=== PATIENT | female | born 1945 | race Caucasian/White ===

== ENCOUNTER 2018-02-08 10:58 | Inpatient (IN) | payer OTHER ==
[2018-02-08] MEDS ORDERED: NA CHLORIDE 0.9% 1,000 ML ONE ×2 (11:00→11:13)
[2018-02-08] MEDS ORDERED: DIGOXIN 0.25 MG/ML AMP ONE (11:49)
--- NOTE | 2018-02-08 11:52 | RAD REPORT ---
EXAM DESCRIPTION: [place] Single View02/08/2018 11:40 am CLINICAL HISTORY: Shortness of breath COMPARISON: 2016 FINDINGS: Mild patchy bilateral lung opacities are seen. The left mediastinum is prominent. The heart is normal size IMPRESSION: Prominence of the mediastinum may indicate lymphadenopathy. CT chest with IV contrast is recommended. Mild bilateral patchy lung opacities. This also can be evaluated on the CT scan
--- NOTE | 2018-02-08 12:19 | ER ---
Nurse's Notes [facility] Name: Jadon Triplett Age: 72 yrs Sex: Female : 1945 Arrival Date: 02/08/2018 Time: 10:59 Bed 3 Private MD: Diagnosis: Dyspnea;Hypoxemia;Cardiomegaly;Cystitis;Hemoptysis-6 cm left hilar mass, malignant Presentation: 02/08 10:55 Presenting complaint: EMS states: Shortness of breath and lethargy x "a few days". ss Transition of care: patient was received from another setting of care ([facility]-term care [facility]. Onset of symptoms is unknown. Risk Assessment: Do you want to hurt yourself or someone else? Patient reports no desire to harm self or others. Initial Sepsis Screen: Does the patient meet any 2 criteria? RR > 20 per min. Altered Mental Status. HR > 90 bpm. Does the patient have a suspected source of infection? Yes: Productive cough/pneumonia. Note half-way reports that patient was 96% on 2L NC, however EMS sheet metal smith states that on arrival to [place], patient's O2 on 10 L was 92%. Care prior to arrival: IV initiated. 20 GA, in the left antecubital area, Glucose check: 110 Oxygen administered. via a non-rebreather mask. 10:55 Method Of Arrival: EMS: [facility] 10:55 Acuity: PATRICIO 2 ss Triage Assessment: 11:00 General: Appears uncomfortable, slender, malnourished, Behavior is calm, cooperative, sv appropriate for age. Pain: Denies pain. EENT: No signs and/or symptoms were reported regarding the EENT system. Neuro: Level of Consciousness is awake, alert, obeys commands, Oriented to person, place, time, situation, Weakness in bilateral leg(s). Cardiovascular: Heart tones S1 S2 present Patient's skin is warm and dry. Pulses are 3+ in right radial artery and left radial artery Rhythm is atrial fibrillation with rapid ventricular response. Respiratory: Reports shortness of breath at rest Respiratory effort is labored, Respiratory pattern is symmetrical, tachypnea Onset: The symptoms/episode began/occurred just prior to arrival, the patient has mild shortness of breath. Derm: Skin is pale. Musculoskeletal: Range of motion: limited in right elbow. Historical: - Allergies: 11:53 No Known Allergies; sv - PMHx: 13:51 Arthritis; Asthma; Chronic pain; COPD; Degenerative disc disease; Depression; tw2 Hypertension; Myocardial infarction; Rheumatoid Arthritis; Polio; - Immunization history:: Adult Immunizations up to date. - Family history:: not pertinent. - Social history:: Smoking status: Patient/guardian denies using tobacco. - Ebola Screening: : No symptoms or risks identified at this time. Screenin:10 Abuse screen: Denies threats or abuse. Denies injuries from another. Nutritional sv screening: On no prescribed diet Difficulty chewing/swallowing? No Had unintentional weight loss of 10 pounds or more. Intervention for positive screen: ED Physician notified. Tuberculosis screening: No symptoms or risk factors identified. Fall Risk No fall in past 12 months (0 pts). Secondary diagnosis (15 points) impaired mobility, IV access (20 points). Ambulatory Aid- None/Bed Rest/Nurse Assist (0 pts). Gait- Weak (10 pts.). Mental Status- Oriented to own ability (0 pts). Total Martin Fall Scale indicates High Risk Score (45 or more points). Fall prevention measures have been instituted. Side Rails Up X 2 Placed Close to Nursing Station Frequent Obs/Assessments Occuring As available patient and family educated on Fall Prevention Program and Strategies. Assessment: 11:10 Reassessment: See triage assessment. sv 11:50 Reassessment: No changes from previously documented assessment. Patient and/or family sv updated on plan of care and expected duration. Pain level reassessed. Patient is alert, oriented x 3, equal unlabored respirations, skin warm/dry/pink. 13:05 Reassessment: pt taken to CT at this time with tech. Christine tw2 13:57 Reassessment: Patient and/or family updated on plan of care and expected duration. Pain sv level reassessed. Patient is alert, oriented x 3, equal unlabored respirations, skin warm/dry/pink. Patient states symptoms have improved. Respiratory: Airway is patent Respiratory effort is even, unlabored, Respiratory pattern is symmetrical, tachypnea. Vital Signs: 10:55 BP 118 / 44; Pulse 146; Resp 28; Pulse Ox 94% on 10% Non-rebreather mask; sv 11:54 BP 146 / 84; Pulse 116; Resp 25; Pulse Ox 100% on 10% Non-rebreather mask; tw2 12:34 Weight 36.29 kg (R); tw2 12:36 BP 124 / 59; Pulse 119; Resp 28; Pulse Ox 99% ; em1 13:30 BP 109 / 59; Pulse 118; Resp 23; Pulse Ox 98% on 2 lpm NC; sv 14:20 BP 100 / 57; Pulse 111; Resp 22; Pulse Ox 95% on 2 lpm NC; sv 12:34 per [facility] via family at bedside at this time. tw2 ED Course: 10:59 Patient arrived in ED. ss 10:59 Rakesh Gerber MD is Attending Physician. cassi 11:02 Triage completed. ss 11:02 Arm band placed on right wrist. ss 11:10 Patient has correct armband on for positive identification. Placed in gown. Bed in low sv position. Side rails up X2. medical concierge on. Pulse ox on. NIBP on. Door closed. Warm blanket given. Pillow given. Head of bed elevated. 11:18 Radha Lemon, EILEEN is Primary Nurse. sv 11:20 Villafana cath inserted, using sterile technique, 16 Fr., by hi, balloon inflated, to sv gravity drainage, urine specimen collected. returned cloudy urine. Patient tolerated poorly. 11:37 X-ray completed. Portable x-ray completed in exam room. Patient tolerated procedure mh1 well. 11:37 XRAY Chest (1 view) In Process Unspecified. EDMS 12:18 Oma Page MD is Hospitalizing Provider. cassi 13:15 CBC Smear Scan Sent. sv 13:16 Ckmb Sent. sv 13:16 CPK Sent. sv 13:16 LFT's Sent. sv 13:16 Basic Metabolic Panel Sent. sv 13:16 BNP Sent. sv 13:18 CT completed. Patient tolerated procedure well. Patient moved back from CT. mw3 13:52 Awaiting: Attempted to give report at this time was told Suzy needed 10 minutes. tw2 13:58 No provider procedures requiring assistance completed. sv 14:08 Patient admitted, IV remains in place. intact. sv Administered Medications: 11:33 Drug: NS 0.9% 500 ml Route: IV; Rate: bolus; Site: left antecubital; sv 11:50 Follow up: Response: No adverse reaction; IV Status: Completed infusion; IV Intake: sv 500ml 11:51 Drug: Digoxin 0.5 mg Route: IVP; Site: left antecubital; sv 12:00 Follow up: Response: No adverse reaction sv 12:45 Drug: Lopressor 2.5 mg Route: IVP; Site: left jugular; tw2 14:24 Follow up: Response: No adverse reaction sv 12:47 Drug: Xopenex 1.25 mg Route: Inhalation; tw2 12:48 Drug: levofloxacin 500 mg Volume: 100 ml; Route: IVPB; Infused Over: 60 mins; Site: tw2 left jugular; 13:45 Follow up: Response: No adverse reaction; IV Status: Completed infusion; IV Intake: sv 100ml 12:48 Drug: Xopenex 1.25 mg Route: Inhalation; tw2 12:48 Drug: AtroVENT Aerosol 0.5 mg Route: Inhalation; tw2 12:48 Drug: Lopressor 25 mg Route: PO; tw2 14:25 Follow up: Response: No adverse reaction sv 12:48 Drug: SOLU-Medrol 2 mg/kg {Note: 72mg Solu-Medrol given.} Route: IVP; Site: left tw2 jugular; 14:23 Follow up: Response: No adverse reaction sv 12:49 Drug: NS 0.9% 1000 ml Route: IV; Rate: 125 ml/hr; Site: left antecubital; tw2 14:25 Follow up: Response: No adverse reaction; IV Status: Infusion continued upon admission sv 12:58 Drug: Rocephin - (cefTRIAXone) 1 grams Route: IVPB; Infused Over: 5 mins; Site: left tw2 jugular; 13:04 Follow up: Response: No adverse reaction; IV Status: Completed infusion tw2 14:24 CANCELLED (not needed): Lopressor 2.5 mg IVP once; Hold for SBP <100 or HR <60. sv Intake: 11:50 IV: 500ml; Total: 500ml. sv 13:45 IV: 100ml; Total: 600ml. sv Outcome: 12:19 Decision to Hospitalize by Provider. cassi 14:08 Admitted to Tele accompanied by tech, family with patient, via stretcher, room 416, sv with oxygen, with chart, Report called to Suzy ARELLANO 14:08 Condition: stable 14:08 Condition: improved 14:08 Instructed on the need for admit. 14:28 Patient left the ED. sv Signatures: Dispatcher [employer] Radha Griffith RN Rakesh Barnes MD MD cha Harvey, Martha 1 Virgilio Henley1 Bria Bartholomew RN RN ss Andria Mariano RN RN tw2 Martha Florence 3
--- NOTE | 2018-02-08 12:20 | EDPHYS ---
Physician Documentation [facility] Name: Jadon Triplett Age: 72 yrs Sex: Female : 1945 Arrival Date: 02/08/2018 Time: 10:59 Bed 3 Private MD: ED Physician Rakesh Gerber HPI: 02/08 11:18 This 72 yrs old Female presents to ER via EMS with complaints of Cough, Chest cassi Congestion, Shortness Of Breath. 11:18 The patient or guardian reports cough, difficulty breathing. Onset: The cassi symptoms/episode began/occurred 2 day(s) ago. Severity of symptoms: At their worst the symptoms were moderate, in the emergency department the symptoms are unchanged. Modifying factors: The symptoms are alleviated by nothing, the symptoms are aggravated by nothing. Associated signs and symptoms:. The patient has not experienced similar symptoms in the past. Historical: - Allergies: 11:53 No Known Allergies; sv - PMHx: 13:51 Arthritis; Asthma; Chronic pain; COPD; Degenerative disc disease; Depression; tw2 Hypertension; Myocardial infarction; Rheumatoid Arthritis; Polio; - Immunization history:: Adult Immunizations up to date. - Family history:: not pertinent. - Social history:: Smoking status: Patient/guardian denies using tobacco. - Ebola Screening: : No symptoms or risks identified at this time. ROS: 11:19 Constitutional: Negative for fever, chills, and weight loss, Eyes: Negative for injury, cassi pain, redness, and discharge, ENT: Negative for injury, pain, and discharge, Neck: Negative for injury, pain, and swelling, Abdomen/GI: Negative for abdominal pain, nausea, vomiting, diarrhea, and constipation, Back: Negative for injury and pain, : Negative for injury, bleeding, discharge, and swelling, MS/Extremity: Negative for injury and deformity, Skin: Negative for injury, rash, and discoloration, Neuro: Negative for headache, weakness, numbness, tingling, and seizure. 11:19 Cardiovascular: Positive for chest pain, palpitations. 11:19 Respiratory: Positive for cough, shortness of breath, wheezing, expiratory. Exam: 11:19 Constitutional: This is a well developed, well nourished patient who is awake, alert, cassi and in no acute distress. Head/Face: Normocephalic, atraumatic. Eyes: Pupils equal round and reactive to light, extra-ocular motions intact. Lids and lashes normal. Conjunctiva and sclera are non-icteric and not injected. Cornea within normal limits. Periorbital areas with no swelling, redness, or edema. ENT: Nares patent. No nasal discharge, no septal abnormalities noted. Tympanic membranes are normal and external auditory canals are clear. Oropharynx with no redness, swelling, or masses, exudates, or evidence of obstruction, uvula midline. Mucous membranes moist. Neck: Trachea midline, no thyromegaly or masses palpated, and no cervical lymphadenopathy. Supple, full range of motion without nuchal rigidity, or vertebral point tenderness. No Meningismus. Chest/axilla: Normal chest wall appearance and motion. Nontender with no deformity. No lesions are appreciated. Abdomen/GI: Soft, non-tender, with normal bowel sounds. No distension or tympany. No guarding or rebound. No evidence of tenderness throughout. Back: No spinal tenderness. No costovertebral tenderness. Full range of motion. Female : Normal external genitalia. Skin: Warm, dry with normal turgor. Normal color with no rashes, no lesions, and no evidence of cellulitis. MS/ Extremity: Pulses equal, no cyanosis. Neurovascular intact. Full, normal range of motion. Neuro: Awake and alert, GCS 15, oriented to person, place, time, and situation. Cranial nerves II-XII grossly intact. Motor strength 5/5 in all extremities. Sensory grossly intact. Cerebellar exam normal. Normal gait. Psych: Awake, alert, with orientation to person, place and time. Behavior, mood, and affect are within normal limits. 11:19 Cardiovascular: Rate: tachycardic, Rhythm: irregularly irregular, Pulses: Pulses are 4+ in bilateral radial, brachial, femoral, popliteal, posterior tibial and and dorsalis pedis arteries.. Heart sounds: normal, JVD: is not appreciated. Vital Signs: 10:55 BP 118 / 44; Pulse 146; Resp 28; Pulse Ox 94% on 10% Non-rebreather mask; sv 11:54 BP 146 / 84; Pulse 116; Resp 25; Pulse Ox 100% on 10% Non-rebreather mask; tw2 12:34 Weight 36.29 kg (R); tw2 12:36 BP 124 / 59; Pulse 119; Resp 28; Pulse Ox 99% ; em1 13:30 BP 109 / 59; Pulse 118; Resp 23; Pulse Ox 98% on 2 lpm NC; sv 14:20 BP 100 / 57; Pulse 111; Resp 22; Pulse Ox 95% on 2 lpm NC; sv 12:34 per [facility] via family at bedside at this time. tw2 Procedures: 12:29 Peripheral line: by aseptic technique a peripheral line was placed in the left external [facility] jugular vein. MDM: 10:59 Patient medically screened. [facility] 11:21 Data reviewed: vital signs, nurses notes, lab test result(s), EKG, radiologic studies, [facility] plain films. 02/08 11:04 Order name: Basic Metabolic Panel [facility] 02/08 11:04 Order name: BNP [facility] 02/08 11:04 Order name: CBC with Diff [facility] 02/08 11:04 Order name: Ckmb [facility] 02/08 11:04 Order name: CPK [facility] 02/08 11:04 Order name: LFT's [facility] 02/08 11:04 Order name: Magnesium; Complete Time: 12:59 [facility] 02/08 11:04 Order name: PT-INR; Complete Time: 12:59 [facility] 02/08 11:04 Order name: Ptt, Activated; Complete Time: 12:59 [facility] 02/08 11:04 Order name: Troponin (emerg Dept Use Only); Complete Time: 12:59 [facility] 02/08 11:04 Order name: Lipase; Complete Time: 12:59 [facility] 02/08 11:04 Order name: Blood Culture Adult (2) [facility] 02/08 11:04 Order name: Procalcitonin [facility] 02/08 11:04 Order name: Urine Culture [facility] 02/08 11:04 Order name: XRAY Chest (1 view); Complete Time: 12:15 [facility] 02/08 11:04 Order name: Type And Screen; Complete Time: 13:17 [facility] 02/08 11:05 Order name: Basic Metabolic Panel; Complete Time: 12:59 EDMS 02/08 11:05 Order name: BNP B-Type Natriuretic Peptide; Complete Time: 12:59 EDMS 02/08 11:05 Order name: CKMB Creatine Kinase MB; Complete Time: 12:59 EDMS 02/08 11:05 Order name: Creatine Phosphokinase; Complete Time: 12:59 EDMS 02/08 11:05 Order name: Liver (Hepatic) Function; Complete Time: 12:59 [facility] 02/08 11:17 Order name: TSH [facility] 02/08 12:17 Order name: CT Chest For PE Angio [facility] 02/08 12:30 Order name: CBC Smear Scan [facility] 02/08 12:35 Order name: Urine Dipstick--Ancillary (enter results); Complete Time: 12:48 02/08 13:48 Order name: CT [facility] 02/08 11:04 Order name: EKG; Complete Time: 11:05 [facility] 02/08 11:04 Order name: Cardiac monitoring; Complete Time: 11:09 [facility] 02/08 11:04 Order name: EKG - Nurse/Tech; Complete Time: 11:10 [facility] 02/08 11:04 Order name: IV Saline Lock; Complete Time: 11:10 [facility] 02/08 11:04 Order name: Labs collected and sent; Complete Time: 11:10 [facility] 02/08 11:04 Order name: O2 Per Protocol; Complete Time: 11:10 [facility] 02/08 11:04 Order name: O2 Sat Monitoring; Complete Time: 11:10 [facility] 02/08 11:04 Order name: Urine Dipstick-Ancillary (obtain specimen); Complete Time: 13:16 [facility] 02/08 11:04 Order name: IV Saline Lock - Large Bore; Complete Time: 11:33 [facility] 02/08 11:04 Order name: Villafana; Complete Time: 11:33 [facility] 02/08 12:25 Order name: CONS Physician Consult [facility] Administered Medications: 11:33 Drug: NS 0.9% 500 ml Route: IV; Rate: bolus; Site: left antecubital; sv 11:50 Follow up: Response: No adverse reaction; IV Status: Completed infusion; IV Intake: sv 500ml 11:51 Drug: Digoxin 0.5 mg Route: IVP; Site: left antecubital; sv 12:00 Follow up: Response: No adverse reaction sv 12:45 Drug: Lopressor 2.5 mg Route: IVP; Site: left jugular; tw2 14:24 Follow up: Response: No adverse reaction sv 12:47 Drug: Xopenex 1.25 mg Route: Inhalation; tw2 12:48 Drug: levofloxacin 500 mg Volume: 100 ml; Route: IVPB; Infused Over: 60 mins; Site: tw2 left jugular; 13:45 Follow up: Response: No adverse reaction; IV Status: Completed infusion; IV Intake: sv 100ml 12:48 Drug: Xopenex 1.25 mg Route: Inhalation; tw2 12:48 Drug: AtroVENT Aerosol 0.5 mg Route: Inhalation; tw2 12:48 Drug: Lopressor 25 mg Route: PO; tw2 14:25 Follow up: Response: No adverse reaction sv 12:48 Drug: SOLU-Medrol 2 mg/kg {Note: 72mg Solu-Medrol given.} Route: IVP; Site: left tw2 jugular; 14:23 Follow up: Response: No adverse reaction sv 12:49 Drug: NS 0.9% 1000 ml Route: IV; Rate: 125 ml/hr; Site: left antecubital; tw2 14:25 Follow up: Response: No adverse reaction; IV Status: Infusion continued upon admission sv 12:58 Drug: Rocephin - (cefTRIAXone) 1 grams Route: IVPB; Infused Over: 5 mins; Site: left tw2 jugular; 13:04 Follow up: Response: No adverse reaction; IV Status: Completed infusion tw2 14:24 CANCELLED (not needed): Lopressor 2.5 mg IVP once; Hold for SBP <100 or HR <60. sv Disposition: 02/08/18 12:19 Hospitalization ordered by Oma Page for Inpatient Admission. Preliminary diagnosis are Dyspnea, Hypoxemia, Cardiomegaly, Cystitis, Hemoptysis - 6 cm left hilar mass, malignant. - Bed requested for Telemetry/MedSurg (Inpatient). - Status is Inpatient Admission. sv - Condition is Fair. - Problem is new. - Symptoms have improved. UTI on Admission? Yes Signatures: Dispatcher [employer] EDMI Radha Lemon RN RN sv Woody, Diana, RN RN dw Anderson, Corey, MD MD cha Wise, Tara, RN RN tw2 Corrections: (The following items were deleted from the chart) 12:19 12:19 Hospitalization Ordered by Oma Page MD for Inpatient Admission. Preliminary [facility] diagnosis is Dyspnea. Bed requested for Telemetry/MedSurg (Inpatient). Status is Inpatient Admission. Condition is Fair. Problem is new. Symptoms have improved. UTI on Admission? Yes. cassi 12:49 12:19 02/08/2018 12:19 Hospitalization Ordered by Oma Page MD for Inpatient cassi Admission. Preliminary diagnosis is Dyspnea; Hypoxemia; Cardiomegaly. Bed requested for Telemetry/MedSurg (Inpatient). Status is Inpatient Admission. Condition is Fair. Problem is new. Symptoms have improved. UTI on Admission? Yes. cassi 13:33 12:49 02/08/2018 12:19 Hospitalization Ordered by Oma Page MD for Inpatient dw Admission. Preliminary diagnosis is Dyspnea; Hypoxemia; Cardiomegaly; Cystitis. Bed requested for Telemetry/MedSurg (Inpatient). Status is Inpatient Admission. Condition is Fair. Problem is new. Symptoms have improved. UTI on Admission? Yes. cassi 13:45 13:33 02/08/2018 12:19 Hospitalization Ordered by Oma Page MD for Inpatient cassi Admission. Preliminary diagnosis is Dyspnea; Hypoxemia; Cardiomegaly; Cystitis. Bed requested for Telemetry/MedSurg (Inpatient). Status is Inpatient Admission. Condition is Fair. Problem is new. Symptoms have improved. UTI on Admission? Yes. dw 14:24 12:26 Lopressor 2.5 mg IVP once; Hold for SBP <100 or HR <60. ordered. cassi sv 14:24 14:24 Lopressor 2.5 mg IVP once; Hold for SBP <100 or HR <60. ordered. sv sv 14:28 13:45 02/08/2018 12:19 Hospitalization Ordered by Oma Page MD for Inpatient sv Admission. Preliminary diagnosis is Dyspnea; Hypoxemia; Cardiomegaly; Cystitis; Hemoptysis - 6 cm left hilar mass, malignant. Bed requested for Telemetry/MedSurg (Inpatient). Status is Inpatient Admission. Condition is Fair. Problem is new. Symptoms have improved. UTI on Admission? Yes. cassi
[2018-02-08 12:27] LABS: Absolute Lymphocytes (CBC) 0.4 K/uL (0.7-4.9); Absolute Monocytes 0.5 K/uL (0.1-1.3); Absolute Neutrophil 12.5 K/uL (1.8-8.0); Basophils % 0.5 % (0-1.3); Eosinophils % 0.4 % (0-4.4); Hematocrit 37.6 % (36.0-45.0); Lymphocytes % 2.8 % (15.3-44.8); MCH 28.5 pg (27.0-35.0); MCV 89.8 fL (80-100); MPV 7.6 fL (7.6-11.3); Monocytes % 3.8 % (3.3-12.3); RBC Red Blood Cell Count 4.19 M/uL (3.86-4.86)
[2018-02-08 12:37] LABS: Urine Blood 1+ (NEG); Urine Glucose NEGATIVE (NEG); Urine Protein NEGATIVE (NEG); Urine Specific Gravity 1.015 (1.005-1.030); Urine pH 7.5 (5.0-7.0)
[2018-02-08] MEDS ORDERED: LEVALBUTEROL 1.25 MG/3 ML NEB ONE (12:39)
[2018-02-08] MEDS ORDERED: IPRATROPIUM BROM 0.5MG/2.5ML ONE (12:39)
[2018-02-08] MEDS ORDERED: Levofloxacin500mg IV 500 MG/100 ML BAG IV ONE (12:40)
[2018-02-08] MEDS ORDERED: METHYLPREDNISOLONE 125 MG INJ ONE (12:40)
[2018-02-08] MEDS ORDERED: METOPROLOL TAR 25 MG TAB ONE (12:40)
[2018-02-08] MEDS ORDERED: METOPROLOL TARTRATE 5 MG/5 ML INJ IV ONE (12:40)
[2018-02-08 12:43] LABS: Bicarbonate 29 mEq/L (21-31); Glucose Level 163 mg/dL (65-120); Lipase 25 U/L (22-51); Potassium 3.7 mEq/L (3.6-5.0); Sodium Level 143 mEq/L (135-145)
[2018-02-08 12:46] LABS: Protime INR 1.03
[2018-02-08 12:49] LABS: ALT/SGPT 14 IU/L (10-60); AST/SGOT 20 IU/L (10-42); Albumin 2.8 g/dL (3.2-5.5); Alkaline Phosphatase 88 IU/L (42-121); BUN Blood Urea Nitrogen 20 mg/dL (6-20); Bilirubin Direct 0.1 mg/dL (0-0.2); Bilirubin Total 0.5 mg/dL (0.3-1.2); Creatine Phosphokinase 61 IU/L (22-269); Magnesium 2.1 mg/dL (1.8-2.5); Protein, Total 6.9 g/dL (6.0-8.3)
[2018-02-08 12:51] LABS: CKMB Creatine Kinase MB 2.7 ng/ml (0.3-4.0)
[2018-02-08] MEDS ORDERED: CEFTRIAXONE/SWI 1gm 1 GM/10 ML SYR ONE (13:01)
[2018-02-08 13:30] LABS: Blood Morphology Comment NOT SEEN (NOT SEEN); Platelet Estimate ADEQ; Urine White Blood Cell Casts OK
--- NOTE | 2018-02-08 13:48 | RAD REPORT ---
EXAM DESCRIPTION: CT - Chest For Pe Angio - 02/08/2018 1:20 pm CLINICAL HISTORY: Cough, weakness, shortness of breath COMPARISON: Chest exam February 08, 2018, CT study October 2012 TECHNIQUE: Dynamically enhanced 3 mm thick images of the chest were obtained during administration o f approximately 150mL Isovue 370 IV contrast. Coronal and oblique reconstruction images were generate d and reviewed. Exam utilizes a protocol to evaluate the pulmonary arterial tree. All CT scans are performed using dose optimization technique as appropriate and may include automated exposure control or mA/KV adjustment according to patient size. FINDINGS: No pulmonary emboli are identified. No aneurysm, dissection or acute aortic finding. Prominent atherosclerotic calcifications are present . No pericardial thickening or effusion. A large 6 x 5 x 5 centimeter malignant mass encircles the left pulmonary artery causing significant l uminal narrowing. Mass encircles the left mainstem bronchus without luminal narrowing. Aortopulmonic window is filled by this mass which extends superiorly along the left lateral margin of the aorta. Bi lateral hilar lymph nodes are present. Soft tissue attenuation is present in the subcarinal region as well. Patient has significant baseline fibro emphysematous lung changes. In the posterior inferior right up per lobe abutting the major and minor fissures there is focal parenchymal opacification. Patient has had a previous pneumonia in this region and this could be postinflammatory scarring. A new area of in filtrate is possible. 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 Po sterior gutter atelectasis is present. A 10 millimeter nodule in the right lower lobe near the base i s probably metastatic. No chest wall masses or abnormal axillary lymphadenopathy. Findings telephoned to the referring physician 1:43 p.m. IMPRESSION: No pulmonary emboli identified. Patient has significant underlying baseline emphysema. Large 6 centimeter malignant mass filling the left side of the mediastinum and left hilum. Mass encir cles and very significantly narrows the left pulmonary artery. Left mainstem bronchus is encircled bu t not narrowed. Bilateral hilar lymphadenopathy and suspected metastatic nodule in the right lower lobe. Patient has bilateral atelectasis in each gutter. This could potentially mask minimal infiltrate. Posterior inferior right upper lobe opacification is favored to be remnant scarring from a prior pneu monia.
--- NOTE | 2018-02-08 14:04 | P.HP ---
Certification for Inpatient Patient admitted to: Inpatient With expected LOS: >2 Midnights Patient will require the following post-hospital care: Hospice Practitioner: I am a practitioner with admitting privileges, knowledge of patient current condition, hospital course, and medical plan of care. Services: Services provided to patient in accordance with Admission requirements found in Title 42 Section 412.3 of the Code of Federal Regulations <Zackary Siddiqi - Last Filed: 02/08/18 13:55> Patient History Date of Service: 02/08/18 Reason for admission: COPD exacerbation, Hemoptysis, UTI, Atrial Fib History of Present Illness: This is a 72-year-old female that presented to the emergency room via EMS for acute respiratory failure. Family stated that patient had not been feeling well for the past couple weeks but has had an abrupt decline over the last day or so. Patient was brought in by EMS and 10 liters/minute non-rebreather with a pulse ox of 92%. Patient currently hemodynamically stable and not in acute respiratory distress post breathing treatments and steroid therapy. The patient has an extensive heart history and pulmonary history including heart stents, congestive heart failure, previous NC, CVA, COPD, coronary artery disease, rheumatoid, arthritis, and GERD. Patient also has a history of polio. The patient was found to be in new onset atrial fibrillation with rapid ventricular rate. Patient was given digoxin and Lopressor via IV. Patient was found to have urinary tract infection which was initially treated with Rocephin. Plain radiographs revealed mediastinal lymphadenopathy. Suggested that she have a CT which was carried out in the ED. CT reveals mediastinal lymphadenopathy with a left mediastinal mass consistent with malignancy. Further assessment will be needed in in hospital setting. Home medications list reviewed: Yes - Past Medical/Surgical History Diabetic: No -: Rheumatoid arthritis -: COPD -: Coronary artery disease with previous stent in 2004 -: Post-polio syndrome -: Carpal tunnel syndrome -: Anxiety -: Hyperlipidemia -: Osteoporosis -: Osteoarthritis -: History of falls -: Asymptomatic cholelithiasis -: post PTCA -: Cardiac stent placement -: Appendectomy -: Cataract surgery -: Hysterectomy Psychosocial/ Personal History: She currently does live by herself. She is a . She has 3 children. She also has 2 grand children that live in [facility]. She is in the process of moving to [place] within the next year. - Social History Smoking Status: Former smoker Smoking therapy provided: No Alcohol use: Yes CD- Drugs: No Caffeine use: Yes Place of Residence: [facility] <Zackary Siddiqi - Last Filed: 02/08/18 13:55> Date of Service: 02/09/18 - Family History Sister -: Stroke Brother -: Stroke Mother -: Diabetes <Oma Page - Last Filed: 02/09/18 16:05> Allergies NKDA Allergy (Uncoded 01/30/14 23:47) Unknown No Known Allerg Allergy (Uncoded 05/28/16 05:54) Unknown No Known Allergi Allergy (Uncoded 05/23/16 02:07) Unknown No Known Allergies Allergy (Uncoded 02/08/18 14:32) Unknown Home Medications: LORazepam [Ativan*] 1 tab PO BEDTIME 11/09/12 Tramadol HCl 50 mg PO Q6H 05/23/16 Acetaminophen 325 mg PO Q4H PRN 02/08/18 Albuterol Sulfate [Proair Hfa] 2 puff IH Q4H PRN 02/08/18 Ascorbic Acid [Vitamin C] 500 mg PO BID 02/08/18 Baclofen [Lioresal] 10 mg PO TID 02/08/18 Bisacodyl [Laxative Suppository] 10 mg RC DAILY PRN 02/08/18 Butalb/Acetaminophen/Caffeine [Qvsixn-Arpkfcgw-Ogfi 50-325-40] 1 each PO Q6H PRN 02/08/18 Calcium Carbonate/Vitamin D3 [Calcium 600-Vit D3 400 Caplet] 1 each PO DAILY 07/18 Collagenase [Santyl Ointment] 15 gm TP DAILY 02/08/18 Dextran 70/Hypromellose [Artificial Tears Drops] 15 ml OP TID 02/08/18 Docusate Sodium 100 mg PO BID 02/08/18 Famotidine [Pepcid] 20 mg PO DAILY 02/08/18 Fentanyl [Duragesic] 1 each TD EVERY 3RD DAY 02/08/18 Fluticasone Propionate [24 Hour Allergy Relief] 15.8 ml NS DAILY PRN 02/08/18 Gabapentin [Neurontin] 200 mg PO QID 02/08/18 Ipratropium/Albuterol Sulfate [Iprat-Albut 0.5-3(2.5) mg/3 ml] 3 ml IH Q4H PRN 02/08/18 Magnesium Oxide [Mag 0X Tab] 400 mg PO DAILY 02/08/18 Menthol [Biofreeze] 118 ml TP Q8H PRN 02/08/18 Metoprolol Succinate [Toprol Xl] 12.5 mg PO DAILY 02/08/18 PARoxetine HCl [Paxil] 5 mg PO DAILY 02/08/18 Polyethylene Glycol 3350 [Miralax] 17 gm PO DAILY PRN 02/08/18 Ropinirole HCl [Requip] 1 mg PO BEDTIME 02/08/18 Topiramate [Topamax] 25 mg PO BID 02/08/18 Zinc Sulfate [Zinc Sulfate*] 220 mg PO DAILY 02/08/18 Review of Systems General: Weakness Eyes: Unremarkable ENT: Unremarkable Respiratory: Cough, Shortness of Breath, Hemoptysis, Wheezing Cardiovascular: Unremarkable Gastrointestinal: Unremarkable Musculoskeletal: Atrophy Integumentary: Other (Small decubitus ulcer on the buttock) Neurological: Unremarkable <Zackary Siddiqi - Last Filed: 02/08/18 13:55> Physical Examination - Vital Signs Blood Pressure: 124/59 Pulse: 100 Respirations: 24 Pulse Ox (%): 99 - Physical Exam General: Alert, In no apparent distress, Oriented x3, Cooperative HEENT: Normocephalic, PERRLA, Mucous membr. moist/pink, EOMI Neck: Supple, 2+ carotid pulse no bruit, JVD not distended, No Thyromegaly Respiratory: Expiratory wheezes, Rhonchi/gurgles, Other (Rhonchi and wheezes present throughout all lobes) Cardiovascular: No edema, Normal pulses, Irregular heart rate/rhythm Capillary refill: <2 Seconds Gastrointestinal: Normal bowel sounds, Soft and benign, Non-distended, No tenderness, No rebound, No guarding Musculoskeletal: No clubbing, No swelling, No contractures, No erythema, No tenderness, No warmth Integumentary: Pressure ulcer (buttock) Neurological: Normal speech, Normal strength at 5/5 x4 extr, Normal tone, Sensation intact, Cranial nerves 3-12 intact, Normal reflexes 2+ - Studies Laboratory Data (last 24 hrs) 02/08/18 12:10: PT 12.2, INR 1.03, APTT 28.0 02/08/18 12:10: WBC 13.5 H, Hgb 11.9 L, Hct 37.6, Plt Count 344 02/08/18 12:10: B-Natriuretic Peptide 119 H 02/08/18 12:10: Sodium 143, Potassium 3.7, BUN 20, Creatinine 0.58, Glucose 163 H, Magnesium 2.1, Total Bilirubin 0.5, AST 20, ALT 14, Alkaline Phosphatase 88, Lipase 25 <Zackary Siddiqi - Last Filed: 02/08/18 13:55> - Studies Microbiology Data (last 24 hrs): 02/08/18 12:10 Blood - Blood Anaerobic Blood Culture - Final <Oma Page - Last Filed: 02/09/18 16:05> Assessment and Plan - Problems (Diagnosis) (1) Hemoptysis Current Visit: Yes Status: Acute Plan: Hemoptysis more than likely secondary to hilar mass in the left lung bronchus region. Dr. Quinonez has been consulted. Will monitor respiratory status and pulse ox (2) Pulmonary malignant neoplasm Current Visit: Yes Status: Acute Plan: This is a new onset pulmonary mass unbeknownst to the family or patient. This will be further assessed by doctor Quinonez, employment assistant to determine whether patient is stable enough to have a biopsy for further assessment. Patient has a do not resuscitate order. Will wait for consults with Dr. Quinonez before making decisions about hospice and palliative care at this time. Monitor respiratory status and pulse ox. Will continue breathing treatments and steroid therapy. Qualifiers: Laterality: left Lung location: hilum of lung Qualified Code(s): C34.02 - Malignant neoplasm of left main bronchus (3) Congestive heart failure (CHF) Current Visit: Yes Status: Chronic Plan: Will limit fluid intake and monitor respiratory status. Qualifiers: Heart failure type: systolic Heart failure chronicity: chronic Qualified Code(s): I50.22 - Chronic systolic (congestive) heart failure (4) Gastroesophageal reflux disease Current Visit: No Status: Chronic Plan: Will continue home medication. And adjust as needed (5) Neuropathy Current Visit: No Status: Chronic Plan: Will continue home medication and adjust as needed (6) Restless legs Current Visit: No Status: Chronic Plan: Will continue home medication and just as needed (7) UTI (urinary tract infection) Onset Date: 05/23/16 Current Visit: No Status: Acute Plan: Patient was started on antibiotics in the ED. Will await culture report for sensitivity and adjust antibiotics as needed. Vital to be documented to assess for fever. Qualifiers: Urinary tract infection type: acute cystitis Hematuria presence: without hematuria Qualified Code(s): N30.00 - Acute cystitis without hematuria (8) Weakness generalized Onset Date: 05/23/16 Current Visit: No Status: Acute Plan: Patient will continue to orally hydrate. Patient will be tried on a regular diet and assess if she is able to tolerate that (9) COPD (chronic obstructive pulmonary disease) Current Visit: No Status: Acute Plan: Will continue albuterol and Atrovent treatments as needed along with steroid therapy. Patient's respiratory status and pulse ox will be monitored and reassessed daily. Dr. Quinonez consulted. Qualifiers: COPD type: COPD with acute exacerbation Qualified Code(s): J44.1 - Chronic obstructive pulmonary disease with (acute) exacerbation Discharge Plan: [facility] Plan to discharge in: Greater than 2 days - Advance Directives Does patient have a Living Will: No Does patient have a Durable POA for Healthcare: No - Code Status/Comfort Care Code Status Assessed: Yes Code Status: Do Not Resuscitate <Zackary Siddiqi - Last Filed: 02/08/18 13:55> - Plan Patient seen and examined. Agree with A&P. <Oma Page - Last Filed: 02/09/18 16:05>
[2018-02-08] MEDS ORDERED: IPRATROPIUM BROM 0.5MG/2.5ML NEB PRN (14:45)
[2018-02-08] MEDS ORDERED: ACETAMINOPHEN 500 MG TAB PO PRN (14:45)
[2018-02-08] MEDS ORDERED: ONDANSETRON 4 MG/2 ML VIAL IV PRN (14:45)
[2018-02-08] MEDS ORDERED: ALBUTEROL 2.5 MG/3 ML NEB SOL NEB PRN (14:45)
--- NOTE | 2018-02-08 16:11 | EKG ---
Test Date: 2018-02-08 Test Time: 11:05:32 Board Mixer Tender: AMEENA MEASUREMENT RESULTS: Intervals: Rate: 141 AR: 132 QRSD: 74 QT: 290 QTc: 444 [place]: P: 44 AR: 132 QRS: 17 T: 123 INTERPRETIVE STATEMENTS: Atrial fibrillation with rapid ventricular response ST & T wave abnormality, consider lateral ischemia Abnormal ECG Compared to ECG 05/27/2016 23:27:00 ST (T wave) deviation now present Sinus rhythm no longer present Electronically Signed On 02-08-18 16:10:27 CDT by Ottoniel Richardson
[2018-02-08 17:15] VITALS: BMI 16.7
[2018-02-08] MEDS: FUROSEMIDE 20 MG/ 2ML VIAL IV SCH (17:27)
[2018-02-08] MEDS: GABAPENTIN 100 MG CAP PO SCH ×2 (17:27→21:05)
[2018-02-08] MEDS: METHYLPREDNISOLONE 40 MG INJ IV SCH (17:31)
[2018-02-08] MEDS ORDERED: MORPHINE 2 MG/ML SYR IV PRN (18:58)
[2018-02-08] MEDS ORDERED: MORPHINE 4 MG/ML SYR ONE (19:40)
[2018-02-08] MEDS: ROPINIROLE HCL 0.25 MG TAB PO SCH (21:05)
[2018-02-09] MEDS: METHYLPREDNISOLONE 40 MG INJ IV SCH (00:27)
[2018-02-09] MEDS ORDERED: LORAZEPAM 0.5 MG TABLET PO ONE (04:09)
[2018-02-09 05:39] LABS: Magnesium 2.3 mg/dL (1.8-2.5); Potassium 4.2 mEq/L (3.6-5.0)
[2018-02-09 05:52] LABS: Absolute Lymphocytes (CBC) 0.5 K/uL (0.7-4.9); Absolute Monocytes 0.1 K/uL (0.1-1.3); Absolute Neutrophil 6.9 K/uL (1.8-8.0); Basophils % 0.1 % (0-1.3); Eosinophils % 0.1 % (0-4.4); Hematocrit 32.4 % (36.0-45.0); Lymphocytes % 6.5 % (15.3-44.8); MCH 28.8 pg (27.0-35.0); MCV 89.2 fL (80-100); MPV 8.1 fL (7.6-11.3); Monocytes % 1.5 % (3.3-12.3); RBC Red Blood Cell Count 3.63 M/uL (3.86-4.86)
[2018-02-09] MEDS: METOPROLOL XL 25 MG TAB PO SCH (06:16)
--- NOTE | 2018-02-09 07:30 | CON ---
Date of Consultation: 02/09/2018 Reason For Consultation: Atrial fibrillation with rapid ventricular response and shortness of breath . History Of Present Illness: Ms. Triplett is a 72-year-old white woman who has a history of depression, rheumatoid arthritis, polio, coronary artery disease, hypertension, and asthma. She came in with he moptysis, cough, shortness of breath, was noted to be in atrial fibrillation with rapid ventricular r esponse. This has resolved. She was in normal rhythm after metoprolol. She was also found to have a malignant mass around the pulmonary artery of significant size with hilar lymphadenopathy and proba yang metastatic disease to the right lung. Initial EKG showed atrial fibrillation. She is in sinus r hythm. Allergies: NONE. Review of Systems: Negative. Social History: Negative. Positive for history of tobacco abuse. Medications: At home include multiple inhalers and metoprolol. Review of Systems: Negative. Family History: Noncontributory. Physical Examination: General: Ms. Triplett appeared much older than stated age. She rather was somnolent. She was afebril e with normal rhythm. Vital Signs: Otherwise stable. HEENT: Negative. Neck: Supple. No bruit. Chest: Clear to auscultation and percussion. Cardiac: Revealed a regular rhythm and rate with an aortic sclerosis murmur, but no gallops or rubs. Abdomen: Benign. Extremities: Revealed no clubbing, cyanosis, or edema. Laboratory Data: White count of 13,000, troponin 0.04. Impression And Plan: Atrial fibrillation with rapid ventricular response, probably secondary to hypo melanie, chronic obstructive pulmonary disease. This has resolved. The patient had a hemoptysis. She i s not a candidate for Lovenox or anticoagulation. She is in sinus rhythm now. I would suffice with a baby aspirin and even hold that for now until the decision is made regarding those. There seems to be malignancy that is possibly metastatic to lung. I would use beta blockers at a low dose to keep her out of atrial fibrillation hopefully. I would like to get an echocardiogram to make sure she silver s not have any significant wall motion abnormalities, valvular heart disease, or effusion. Her other problems include hypertension, coronary artery disease, rheumatoid arthritis, history of depression, and probably it seemed to be stable at this point. I will follow the patient along. FRANCESCO/ALEXANDRO Voice ID: [id number] Report ID: [id number]
--- NOTE | 2018-02-09 08:23 | P.CNS ---
Date of Consult: 02/09/18 Reason for Consult: Lung mass Chief Complaint: Lung mass History of Present Illness: Patient is 72 years of age a prison resident who is debilitated from strokes admitted with weakness and winslow of hemoptysis shortness of breath hoarseness and was found to have a mediastinal mass according to the daughter she has been symptomatic since August has some intermittent hemoptysis Allergies NKDA Allergy (Uncoded 01/30/14 23:47) Unknown No Known Allerg Allergy (Uncoded 05/28/16 05:54) Unknown No Known Allergi Allergy (Uncoded 05/23/16 02:07) Unknown No Known Allergies Allergy (Uncoded 02/08/18 14:32) Unknown Home Medications: LORazepam [Ativan*] 1 tab PO BEDTIME 11/09/12 Tramadol HCl 50 mg PO Q6H 05/23/16 Acetaminophen 325 mg PO Q4H PRN 02/08/18 Albuterol Sulfate [Proair Hfa] 2 puff IH Q4H PRN 02/08/18 Ascorbic Acid [Vitamin C] 500 mg PO BID 02/08/18 Baclofen [Lioresal] 10 mg PO TID 02/08/18 Bisacodyl [Laxative Suppository] 10 mg RC DAILY PRN 02/08/18 Butalb/Acetaminophen/Caffeine [Abuihl-Ytwfhunr-Jdmb 50-325-40] 1 each PO Q6H PRN 02/08/18 Calcium Carbonate/Vitamin D3 [Calcium 600-Vit D3 400 Caplet] 1 each PO DAILY 07/18 Collagenase [Santyl Ointment] 15 gm TP DAILY 02/08/18 Dextran 70/Hypromellose [Artificial Tears Drops] 15 ml OP TID 02/08/18 Docusate Sodium 100 mg PO BID 02/08/18 Famotidine [Pepcid] 20 mg PO DAILY 02/08/18 Fentanyl [Duragesic] 1 each TD EVERY 3RD DAY 02/08/18 Fluticasone Propionate [24 Hour Allergy Relief] 15.8 ml NS DAILY PRN 02/08/18 Gabapentin [Neurontin] 200 mg PO QID 02/08/18 Ipratropium/Albuterol Sulfate [Iprat-Albut 0.5-3(2.5) mg/3 ml] 3 ml IH Q4H PRN 02/08/18 Magnesium Oxide [Mag 0X Tab] 400 mg PO DAILY 02/08/18 Menthol [Biofreeze] 118 ml TP Q8H PRN 02/08/18 Metoprolol Succinate [Toprol Xl] 12.5 mg PO DAILY 02/08/18 PARoxetine HCl [Paxil] 5 mg PO DAILY 02/08/18 Polyethylene Glycol 3350 [Miralax] 17 gm PO DAILY PRN 02/08/18 Ropinirole HCl [Requip] 1 mg PO BEDTIME 02/08/18 Topiramate [Topamax] 25 mg PO BID 02/08/18 Zinc Sulfate [Zinc Sulfate*] 220 mg PO DAILY 02/08/18 - Past Medical/Surgical History Diabetic: No -: Rheumatoid arthritis -: COPD -: Coronary artery disease with previous stent in 2004 -: Post-polio syndrome -: Carpal tunnel syndrome -: Anxiety -: Hyperlipidemia -: Osteoporosis -: Osteoarthritis -: History of falls -: Asymptomatic cholelithiasis -: post PTCA -: Cardiac stent placement -: Appendectomy -: Cataract surgery -: Hysterectomy Psychosocial/ Personal History: She currently does live by herself. She is a . She has 3 children. She also has 2 grand children that live in [facility]. She is in the process of moving to [place] within the next year. - Family History Sister Medical History: Stroke Brother Medical History: Stroke Mother Medical History: Diabetes - Social History Smoking Status: Former smoker Alcohol use: No CD- Drugs: No Caffeine use: Yes Place of Residence: [facility] Review of Systems General: Weakness, Other (Weight loss) Respiratory: Cough, Shortness of Breath, Hemoptysis Cardiovascular: Chest Pain Physical Examination Temp Pulse Resp BP Pulse Ox 98.0 F 86 16 134/56 L 96 02/09/18 08:00 02/09/18 08:00 02/09/18 08:00 02/09/18 08:00 02/09/18 08:00 General: Alert, Mild distress Neck: Supple Respiratory: Clear to auscultation bilaterally, Diminished (Diminished on the right side) Cardiovascular: No edema, Regular rate/rhythm Gastrointestinal: Normal bowel sounds, Soft and benign Neurological: Other (Patient has weakness on the right side) Laboratory Data (last 24 hrs) 02/08/18 12:10: PT 12.2, INR 1.03, APTT 28.0 02/08/18 12:10: WBC 13.5 H, Hgb 11.9 L, Hct 37.6, Plt Count 344 02/08/18 12:10: B-Natriuretic Peptide 119 H 02/08/18 12:10: Sodium 143, Potassium 3.7, BUN 20, Creatinine 0.58, Glucose 163 H, Magnesium 2.1, Total Bilirubin 0.5, AST 20, ALT 14, Alkaline Phosphatase 88, Lipase 25 - Problems (1) Lung cancer Current Visit: Yes Status: Acute Plan: Patient has a very large mediastinal mass with extrinsic compression the most likely this is lung cancer in view of her underlying debilitation patient is not a candidate for chemo radiation or surgery she has stage IV lung cancer most likely discuss with the daughter the planning to provide her with the comfort care no bronchoscopy is a procedures did not want any treatment plan for hospice care with prison Dc antibiotics Dc steroids chemistries reviewed very poor prognosis overall
[2018-02-09] MEDS: FUROSEMIDE 20 MG/ 2ML VIAL IV SCH (09:26)
[2018-02-09] MEDS: GABAPENTIN 100 MG CAP PO SCH ×4 (09:26→21:31)
[2018-02-09] MEDS: PARoxetine HCl 10 MG TAB PO SCH (09:26)
[2018-02-09] MEDS: ASPIRIN 81 MG CHEWABLE TABLET PO SCH (09:27)
[2018-02-09] MEDS ORDERED: Levofloxacin500mg IV 500 MG/100 ML BAG IV SCH (12:00)
--- NOTE | 2018-02-09 14:44 | P.PN ---
Subjective Date of Service: 02/09/18 Primary Care Provider: group home Chief Complaint: Lung mass Subjective: Other (Patient appears stable.) Physical Examination - Vital Signs Temperature: 97.9 F Blood Pressure: 107/46 Pulse: 65 Respirations: 18 Pulse Ox (%): 98 - Physical Exam General: Alert, In no apparent distress, Cooperative HEENT: Atraumatic Neck: Supple Respiratory: Expiratory wheezes Cardiovascular: Regular rate/rhythm Gastrointestinal: Normal bowel sounds, Soft and benign, Non-distended, No tenderness, No masses, No rebound, No guarding Musculoskeletal: No erythema, No tenderness, No warmth Integumentary: No tenderness/swelling, No erythema, No warmth, No cyanosis, Other (Muscle wasting to the upper lower extremities bilateral) Neurological: Normal speech, Normal tone, Normal affect - Studies Microbiology Data (last 24 hrs): 02/08/18 12:10 Blood - Blood Anaerobic Blood Culture - Final Medications List Reviewed: Yes Assessment & Plan - Problems (Diagnosis) (1) CAD (coronary artery disease) Current Visit: Yes Status: Chronic Plan: Case discussed with cardiology. Will continue with aspirin 81 mg daily. In light of lung finding no significant intervention is recommended. Patient will pursue hospice. A discussion with the patient and family was done. All are in agreement with advanced directives indicating do not resuscitate and the pursuit for hospice. Hospice will be arranged at the care home. Likely discharge to hospice tomorrow. Qualifiers: Coronary Disease-Associated Artery/Lesion type: unspecified vessel or lesion type [place] vs. transplanted heart: unspecified whether [place] or transplanted heart Associated angina: angina presence unspecified Qualified Code(s): I25.10 - Atherosclerotic heart disease of [place] coronary artery without angina pectoris (2) Mediastinal mass Current Visit: Yes Status: Acute Plan: CT scan shows: Large 6 centimeter malignant mass filling the left side of the mediastinum and left hilum. Mass encircles and very significantly narrows the left pulmonary artery. Left mainstem bronchus is encircled but not narrowed. Bilateral hilar lymphadenopathy and suspected metastatic nodule in the right lower lobe. Patient has bilateral atelectasis in each gutter. This could potentially mask minimal infiltrate. Posterior inferior right upper lobe opacification is favored to be remnant scarring from a prior pneumonia. Case discussed in detail with patient and family. Patient desires to be do not resuscitate. This was addressed in detail with the patient and family. All were in agreement. After discussion with pulmonology with recommendations. Patient and family has decided on hospice. Patient would not be able to get a biopsy and possible treatment for mass due to her comorbidities. Patient would not be able to tolerate this. Therefore hospice will be pursued. Likely back to the care home with hospice tomorrow. (3) Lung cancer Current Visit: Yes Status: Suspected Plan: Case discussed with pulmonology. Mass in the left mediastinum and left hilar area likely lung cancer. Patient not a candidate for evaluation and treatment due to her comorbidities. Patient would not likely tolerate this. Will pursue hospice. Patient DNR. Patient and family agree with current plan of care. Qualifiers: Laterality: left Lung location: hilum of lung Qualified Code(s): C34.02 - Malignant neoplasm of left main bronchus (4) Atelectasis Current Visit: Yes Status: Acute Plan: Bilateral atelectasis likely related to above. Will monitor closely. (5) Lung metastasis Current Visit: Yes Status: Acute Plan: Right nodule to the lung likely metastasis. Continue as above. Qualifiers: Laterality: right Qualified Code(s): C78.01 - Secondary malignant neoplasm of right lung (6) Atrial fibrillation Current Visit: Yes Status: Acute Plan: Patient presented with AFib with RVR. Patient now rate controlled and in normal sinus rhythm. Will continue with metoprolol. Case discussed with cardiology. No need for chronic anti coagulation due to current plan of care. Will continue with aspirin 81 mg daily and beta-denis therapy. Qualifiers: Atrial fibrillation type: paroxysmal Qualified Code(s): I48.0 - Paroxysmal atrial fibrillation (7) Anemia Current Visit: Yes Status: Chronic Plan: Likely of chronic disease. Will continue monitor closely. Qualifiers: Anemia type: other cause Other causes of anemia: chronic disease, other Qualified Code(s): D63.8 - Anemia in other chronic diseases classified elsewhere (8) COPD (chronic obstructive pulmonary disease) Onset Date: 02/09/18 Current Visit: Yes Status: Chronic Plan: Will provide medication. Wean off oxygen. Qualifiers: COPD type: COPD with acute exacerbation Qualified Code(s): J44.1 - Chronic obstructive pulmonary disease with (acute) exacerbation (9) Weakness generalized Onset Date: 02/09/18 Current Visit: Yes Status: Acute Plan: Secondary to above. Will continue above plan of care. (10) Congestive heart failure (CHF) Onset Date: 02/09/18 Current Visit: Yes Status: Chronic Plan: Will continue with above plan of care. No intervention needed. Continue with diuresis. Qualifiers: Heart failure type: diastolic Heart failure chronicity: chronic Qualified Code(s): I50.32 - Chronic diastolic (congestive) heart failure (11) Gastroesophageal reflux disease Onset Date: 02/09/18 Current Visit: Yes Status: Chronic Plan: Continue with medication. 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 (13) Risk for falls Current Visit: No Status: Acute Plan: Address lifestyle modification education and fall precaution. (14) Rheumatoid arthritis Current Visit: No Status: Chronic Plan: Stable. Will provide medication for pain. Qualifiers: Rheumatoid arthritis location: multiple sites Rheumatoid factor presence: unspecified presence Qualified Code(s): M06.9 - Rheumatoid arthritis, unspecified (15) Lymphadenopathy, hilar Current Visit: Yes Status: Chronic Plan: Continue with above plan of care. Bilateral adenopathy noted. Discharge Plan: [facility] Plan to discharge in: 24 Hours - Code Status/Comfort Care Code Status Assessed: Yes Time Spent Managing Pts Care (In Minutes): 55
[2018-02-09] MEDS ORDERED: TRAMADOL HCL 50 MG TAB PO PRN (14:51)
[2018-02-09] MEDS ORDERED: HYDROCODONE/APAP 7.5/325 MG TAB PO PRN (14:51)
[2018-02-09] MEDS ORDERED: LORAZEPAM 0.5 MG TABLET PO PRN (14:52)
[2018-02-09] MEDS ORDERED: [UNRECOGNIZED DRUG - REMARK] NS PRN (14:52)
--- NOTE | 2018-02-09 15:09 | ECHO ---
HEIGHT: 4 ft 10 in WEIGHT: 80 lb 0 oz DATE OF STUDY: 02/09/[address]: 2-DIMENSIONAL: YES M.MODE: YES DOPPLER: YES COLOR FLOW: YES TDS: NO PORTABLE: NO DEFINITY: NO BUBBLE STUDY: NO DIAGNOSIS: SHORTNESS OF BREATH, ATRIAL FIBRILLATION. CARDIAC HISTORY: CATHERIZATION: YES SURGERY: NO PROSTHETIC VALVE: NO PACEMAKER: NO MEASUREMENTS (cm) DIASTOLIC (NORMALS) SYSTOLIC (NORMALS) IVSd 1.0 (0.6-1.2) LA Diam 2.7 (1.9-4.0) LVEF 73% LVIDd 3.3 (3.5-5.7) LVIDs 1.9 (2.0-3.5) %FS 41% LVPWd 1.0 (0.6-1.2) Ao Diam 2.5 (2.0-3.7) 2 DIMENSIONAL ASSESSMENT: RIGHT ATRIUM: NORMAL LEFT ATRIUM: NORMAL RIGHT VENTRICLE: NORMAL LEFT VENTRICLE: NORMAL TRICUSPID VALVE: NORMAL MITRAL VALVE: NORMAL PULMONIC VALVE: NORMAL AORTIC VALVE: SCLEROSIS PERICARDIAL EFFUSION: NONE AORTIC ROOT: NORMAL LEFT VENTRICULAR WALL MOTION: NORMAL. DOPPLER/COLOR FLOW: MILD TRICUSPID REGURGITATION. RIGHT VENTRICULAR SYSTOLIC PRESSURE 44 MMHG COMMENTS: MILD PULMONARY HYPERTENSION, RIGHT VENTRICULAR SYSTOLIC PRESSURE 44 MMHG. NORMAL LEFT VENTRICULAR SIZE AND FUNCTION. NORMAL LEFT ATRIUM SIZE. MITRAL ANNULAR CALCIFICATION. TECHNOLOGIST: GALEN ALFARO RDCS
[2018-02-09] MEDS ORDERED: ENOXAPARIN 30 MG/0.3 ML SQ SCH (17:00)
[2018-02-09] MEDS: ARFORMOTEROL TARTRATE 15 MCG/2 ML VIAL.NEB NEB SCH (20:10)
[2018-02-09] MEDS: HYPROMELLOSE OP SCH (21:00)
[2018-02-09] MEDS: DEXTRAN OP SCH (21:00)
[2018-02-09] MEDS: ROPINIROLE HCL 0.25 MG TAB PO SCH (21:30)
[2018-02-09] MEDS: TOPIRAMATE 25 MG TAB PO SCH (21:31)
[2018-02-09] MEDS: DOCUSATE NA 100 MG CAP PO SCH (21:31)
[2018-02-09] MEDS: ENSURE ENLIVE 237 ML CAN PO SCH (21:33)
[2018-02-09] MEDS: JUVEN PACKET PO SCH (21:33)
[2018-02-10] MEDS: METOPROLOL XL 25 MG TAB PO SCH (05:19)
[2018-02-10 05:40] LABS: Absolute Monocytes 1.7 K/uL (0.1-1.3); Absolute Neutrophil 8.3 K/uL (1.8-8.0); Basophils % 0.7 % (0-1.3); Eosinophils % 0.4 % (0-4.4); Hematocrit 33.9 % (36.0-45.0); Lymphocytes % 16.2 % (15.3-44.8); MCH 28.9 pg (27.0-35.0); MPV 7.6 fL (7.6-11.3); Monocytes % 13.8 % (3.3-12.3); RBC Red Blood Cell Count 3.85 M/uL (3.86-4.86)
[2018-02-10 05:55] LABS: BUN Blood Urea Nitrogen 17 mg/dL (6-20); Bicarbonate 32 mEq/L (21-31); Glucose Level 94 mg/dL (65-120); Magnesium 2.3 mg/dL (1.8-2.5); Potassium 3.1 mEq/L (3.6-5.0); Sodium Level 140 mEq/L (135-145)
[2018-02-10] MEDS ORDERED: PANTOPRAZOLE 40MG TABLET PO SCH (07:30)
[2018-02-10] MEDS: ENSURE ENLIVE 237 ML CAN PO SCH (09:00)
[2018-02-10] MEDS ORDERED: FUROSEMIDE 40 MG TABLET PO SCH (09:00)
[2018-02-10] MEDS ORDERED: CALCIUM CARBONATE PO SCH (09:00)
[2018-02-10] MEDS: DEXTRAN OP SCH ×2 (09:00→13:11)
[2018-02-10] MEDS ORDERED: COLLAGENASE 30 GM OINTMENT TOP SCH (09:00)
[2018-02-10] MEDS: JUVEN PACKET PO SCH (09:00)
[2018-02-10] MEDS: DOCUSATE NA 100 MG CAP PO SCH (09:00)
[2018-02-10] MEDS ORDERED: CALCIUM CARB 500MG/VIT D 200 IU TAB PO SCH (09:00)
[2018-02-10] MEDS: HYPROMELLOSE OP SCH ×2 (09:00→13:11)
[2018-02-10] MEDS ORDERED: VITAMIN D3 PO SCH (09:00)
[2018-02-10] MEDS: PARoxetine HCl 10 MG TAB PO SCH (09:53)
[2018-02-10] MEDS: ASPIRIN 81 MG CHEWABLE TABLET PO SCH (09:55)
[2018-02-10] MEDS: GABAPENTIN 100 MG CAP PO SCH ×2 (09:56→12:33)
[2018-02-10] MEDS: TOPIRAMATE 25 MG TAB PO SCH (09:57)
[2018-02-10] MEDS: ARFORMOTEROL TARTRATE 15 MCG/2 ML VIAL.NEB NEB SCH (10:28)
[2018-02-10] MEDS ORDERED: POTASSIUM 25 MEQ EFFERV TAB PO ONE (11:25)
--- NOTE | 2018-02-10 11:30 | P.PN ---
Subjective Date of Service: 02/10/18 Primary Care Provider: [facility] Chief Complaint: Lung mass Subjective: No new changes Review of Systems 10-point ROS is otherwise unremarkable Physical Examination - Vital Signs Temperature: 97.5 F Blood Pressure: 152/60 Pulse: 55 Respirations: 16 Pulse Ox (%): 98 - Physical Exam General: Oriented x3, Cachectic HEENT: Atraumatic, Normocephalic, PERRLA Respiratory: Clear to auscultation bilaterally Cardiovascular: No edema, Normal pulses, Regular rate/rhythm Gastrointestinal: Normal bowel sounds, Soft and benign Musculoskeletal: No clubbing Integumentary: Other (flushed cheeks, nurses noted symptom last pm post bath. Remains afebrile) Neurological: Other (generalized weakness, not ambulating) Lymphatics: No axilla or inguinal lymphadenopathy External genitalia: Deferred Rectal: Deferred - Studies Microbiology Data (last 24 hrs): 02/08/18 12:20 Catheterized Urine [place] Count - Final >100,000 CFU/ML. 02/08/18 12:20 Catheterized Urine - Final Proteus Mirabilis 02/08/18 12:10 Blood - Blood Anaerobic Blood Culture - Final Medications List Reviewed: Yes Assessment & Plan - Problems (Diagnosis) (1) Hypokalemia Current Visit: Yes Status: Acute Plan: K-lyte 50meq po now (2) UTI (urinary tract infection) Onset Date: 02/09/18 Current Visit: Yes Status: Acute Plan: Augmentin 400mg po chewable BID x 10days. Cultured/sensitive Qualifiers: Urinary tract infection type: site unspecified Hematuria presence: without hematuria Qualified Code(s): N39.0 - Urinary tract infection, site not specified Discharge Plan: Long-Term Plan to discharge in: 24 Hours
[2018-02-10 15:57] VITALS: BP 112/47; TEMP 98
[2018-02-10 17:30] VITALS: O2SAT 96
[2018-02-10] MEDS ORDERED: AMOX TR/K CLAV 400MG CHEW TAB PO SCH (21:00)
[2018-02-12] MEDS ORDERED: HOME MED 1 EA UNK (Fentanyl [Duragesic] 1 EACH) TD SCH (09:00)
--- NOTE | 2018-03-09 10:38 | DS ---
Date of Discharge: 02/10/2018 Sewer Repairer: Dr. Quinonez with Pulmonology. Admitting Diagnoses: 1.Hemoptysis. 2.Neoplasm, malignant. 3.Congestive heart failure, systolic, chronic. 4.Gastroesophageal reflux disease. 5.Neuropathy. 6.Restless legs syndrome. 7.Urinary tract infection. 8.Generalized weakness. 9.Chronic obstructive pulmonary disease. 10.Chronic bronchitis. Discharge Diagnoses: 1.Hypokalemia. 2.Urinary tract infection. 3.Hemoptysis. 4.Malignant pulmonary neoplasm. 5.Chronic systolic congestive heart failure. 6.Gastroesophageal reflux disease. 7.Neuropathy. 8.Restless leg syndrome. 9.Generalized weakness. 10.Chronic obstructive pulmonary disease. 11.Chronic bronchitis. Hospital Course: The patient is a 72-year-old female comes in with COPD exacerbation, hemoptysis, UT I, Afib. CT scan was done which showed mediastinal lymphadenopathy with left mediastinal mass. The patient was seen by circus performer, Dr. Quinonez. The patient was likely thought to have lung cancer, not a candidate for chemotherapy, radiation or surgery, stage IV lung cancer. They wanted care and comfort, did not want any bronchoscopy or invasive procedures. The patient was therefore discharged to hospice in a serious condition due to terminal illness. Physical Examination: Please see progress note dictated by mid-level on the day of discharge for physical exam findings. Total time spent discharging the patient was 37 minutes. KATHERINE Voice ID: [id number] Report ID: [id number]
== END 2018-02-10 18:59 | disposition hospice, inpatient (51) | DRG 181 ==
LOC: ER 10:58 → ERHOLD 12:22 → 4TH 14:10
PROVIDERS: ADMIT Physician Assistant; ATTEND Family Medicine
DX: C34.02 Malignant neoplasm of left main bronchus (principal); R04.2 Hemoptysis; J44.1 Chronic obstructive pulmonary disease with (acute) exacerbation; I50.22 Chronic systolic (congestive) heart failure; N39.0 Urinary tract infection, site not specified; C78.01 Secondary malignant neoplasm of right lung; K21.9 Gastro-esophageal reflux disease without esophagitis; G62.9 Polyneuropathy, unspecified; G25.81 Restless legs syndrome; R53.1 Weakness; Z51.5 Encounter for palliative care; Z66 Do not resuscitate; E87.6 Hypokalemia; B96.4 Proteus (mirabilis) (morganii) as the cause of diseases classified elsewhere; M06.9 Rheumatoid arthritis, unspecified; I25.10 Atherosclerotic heart disease of native coronary artery without angina pectoris; I48.0 Paroxysmal atrial fibrillation; D63.8 Anemia in other chronic diseases classified elsewhere; G14 Postpolio syndrome; R59.0 Localized enlarged lymph nodes; I69.398 Other sequelae of cerebral infarction; R53.81 Other malaise; Z95.5 Presence of coronary angioplasty implant and graft; Z87.891 Personal history of nicotine dependence; F32.9 Major depressive disorder, single episode, unspecified; R09.02 Hypoxemia
CPT/HCPCS: 36415; 51702; 71045; 71275; 80048; 80076; 81003; 82550; 82553; 83690; 83735; 83880; 84145; 84443; 84484; 85025; 85610; 85730; 86850; 86900; 86901; 87040; 87077; 87086; 87088; 87186; 93005; 93306; 94640; 99285; J0696; J1160; J1650; J1940; J2920; J2930; J3590; J7030; J7605; Q9967